=== PATIENT | female | born 2000 | race Two or more races ===

== ENCOUNTER 2018-01-23 01:10 | Emergency (ER) | payer SELFPAY ==
[~2018-01-23] VITALS: Ht 149.9 cm; Wt 58.5 kg
[2018-01-23] MEDS ORDERED: NKM (01:18)
[2018-01-23 01:20] VITALS: BP 112/70
[2018-01-23] MEDS ORDERED: Ketorolac 30mg Inj IV ONE (01:45)
[2018-01-23 01:50] LABS: APPEARANCE,URINE CLEAR; BILIRUBIN, URINE NEGATIVE (NEGATIVE); COLOR,URINE PALE YELLOW; GLUCOSE, URINE (UA) NEGATIVE (NEGATIVE); KETONES,URINE NEGATIVE (NEGATIVE); LEUKOCYTE ESTERASE ,URINE NEGATIVE (NEGATIVE); NITRITE,URINE NEGATIVE (NEGATIVE); PH,URINE 6.5 (4.5-8.0); PROTEIN,URINE NEGATIVE (NEGATIVE); UROBILINOGEN,URINE NORMAL MG/DL (0.0-1.0)
--- NOTE | 2018-01-23 01:53 | Emergency Room Report ---
History of Present Illness General Chief Complaint: Abdominal Pain Source: Patient Present Illness HPI This is a 17-year-old female with no past medical history. She presents with chief complaint abdominal pain. Onset today. Nausea but no vomiting. No diarrhea. Cramping in nature. [place] distended. No urinary complaint. The made it better. Nothing made it worse. Pain is 7 out of 10. Allergies: Coded Allergies: No Known Allergies (Unverified , 01/23/18) Patient History Past Medical History: none, see triage record, old chart reviewed Past Surgical History: none Pertinent Family History: none Social History: Denies: smoking Last Menstrual Period: December Now: No Immunizations: other Reviewed Nursing Documentation: PMH: Agreed; PSxH: Agreed Nursing Documentation-PMH Past Medical History: No Stated History Review of Systems Eye: Denies: eye pain, blurred vision ENT: Denies: ear pain, nose congestion, throat swelling Respiratory: Denies: cough, shortness of breath Cardiovascular: Denies: chest pain, palpitations Gastrointestinal: Reports: abdominal pain, nausea; Denies: diarrhea, vomiting Musculoskeletal: Denies: back pain, joint pain Skin: Denies: rash Neurological: Denies: headache, numbness Endocrine: Denies: increased thirst, increased urine Hematologic/Lymphatic: Denies: easy bruising All Other Systems: negative except mentioned in HPI Physical Exam Vital Signs Date Time Temp Pulse Resp B/P (MAP) Pulse Ox O2 Delivery O2 Flow Rate FiO2 01/23/18 01:12 98.1 89 16 110/68 95 Room Air 98.1 vitals normal Sp02 EP Interpretation: reviewed, normal General Appearance: well appearing, no apparent distress, alert Head: normocephalic, atraumatic Eyes: bilateral eye PERRL, bilateral eye EOMI ENT: hearing grossly normal, normal pharynx Neck: full range of motion, supple, no meningismus Respiratory: chest non-tender, lungs clear, normal breath sounds Cardiovascular #1: regular rate, rhythm, no murmur Gastrointestinal: normal bowel sounds, non tender, no mass, no organomegaly, no bruit, non-distended Musculoskeletal: back normal, gait/station normal, normal range of motion Psychiatric: mood/affect normal Skin: warm/dry Medical Decision Making Diagnostic Impression: Primary Impression: Abdominal pain Qualified Codes: R10.84 - Generalized abdominal pain ER Course Patient with abdominal pain. Most likely an early gastroenteritis. Based on my exam I wouldn't be surprised if she started having diarrhea. Pain is resolved now. No evidence of acute abdomen or obstruction. We'll discharge home. Lab Results Impression labs normal Last Vital Signs Date Time Temp Pulse Resp B/P (MAP) Pulse Ox O2 Delivery O2 Flow Rate FiO2 01/23/18 01:12 98.1 89 16 110/68 95 Room Air 98.1 Status: improved Disposition: HOME, SELF-CARE Condition: Stable Scripts Ibuprofen* (MOTRIN*) 600 Mg Tablet 600 MG ORAL Q8H PRN for For Pain, #30 TAB 0 Refills Prov: LUÍS SONG M.D. 01/23/18 Patient Instructions: Abdominal Pain, Adult Additional Instructions: Follow-up with your 7 days. Return if worse. LUÍS SONG M.D. January 23, 2018 01:53
[2018-01-23 02:08] LABS: BASOPHILS % (AUTO) 0.9 % (0.0-2.0); EOSINOPHILS % (AUTO) 1.3 % (0.0-3.0); HEMATOCRIT 37.3 % (37.0-47.0); HEMOGLOBIN 12.6 G/DL (12.0-16.0); LYMPHOCYTES % (AUTO) 29.9 % (20.0-45.0); MEAN CORPUSCULAR VOLUME 89 FL (80-99); MONOCYTES % (AUTO) 7.2 % (1.0-10.0); NEUTROPHILS % (AUTO) 60.8 % (45.0-75.0); PLATELET COUNT 308 K/UL (150-450); RED BLOOD COUNT 4.22 M/UL (4.20-5.40); RED CELL DISTRIBUTION WIDTH 11.9 % (11.6-14.8); WHITE BLOOD COUNT 9.6 K/UL (4.8-10.8)
[2018-01-23 02:15] LABS: ANION GAP 8 mmol/L (5-15); BLOOD UREA NITROGEN 14 mg/dL (7-18); CARBON DIOXIDE 27 MMOL/L (21-32); CHLORIDE 104 MMOL/L (98-107); CREATININE 0.6 MG/DL (0.55-1.30); POTASSIUM 4.1 MMOL/L (3.5-5.1); SODIUM 138 MMOL/L (136-145)
[2018-01-23 02:19] LABS: ALANINE AMINOTRANSFERASE 23 U/L (12-78); ALKALINE PHOSPHATASE 72 U/L (46-116); ASPARTATE AMINO TRANSFERASE 20 U/L (15-37); BILIRUBIN,TOTAL 0.3 MG/DL (0.2-1.0)
[2018-01-23] MEDS ORDERED: IBUPROFEN600 MG ORAL (02:22)
[2018-01-23 02:32] VITALS: BP 110/64
== END 2018-01-23 02:55 | disposition home or self-care (01) ==
LOC: EMR 02:42
DX: R10.9 Unspecified abdominal pain (principal); R11.0 Nausea
CPT/HCPCS: 36415; 80053; 81003; 81025; 83690; 85025; 96374; 96375; 99283; J1885; J2405

== ENCOUNTER 2018-07-13 11:32 | Emergency (ER) | payer SELFPAY ==
[~2018-07-13] VITALS: Ht 154.9 cm; Wt 56.7 kg
[~2018-07-13 11:32] MED LIST: IBUPROFEN600 MG ORAL; NKM
--- NOTE | 2018-07-13 12:36 | Emergency Room Report ---
History of Present Illness General Chief Complaint: Complications Source: Patient Present Illness HPI 18-year-old female presents to the emergency department complaining of vaginal bleeding 3 days while currently and her 10th week of . She does and states that she had ultrasound performed almost 2 weeks ago which she states was normal. Patient does not know what blood type she has. Patient reports moderate amount of bleeding and she describes it as a the amount of almost a heavy menstrual flow. Patient states initially was dark red blood but now it has become bright red. Patient reports generalized lower abdominal cramping she denies fevers, chills she reports nausea denies vomiting she denies recent abdominal trauma. She reports some fatigue and has had an episode of dizziness. Patient denies history of anemia. Patient denies significant past medical history. She reports that her abdominal cramping is approximately 4 out of 10 in severity. She denies serious, urinary frequency or urgency. Patient states she is not sure whether she is having hematuria or not as there is always blood in her urine last few days. Patient reports some low back pain as well. Allergies: Coded Allergies: No Known Allergies (Unverified , 01/23/18) Patient History Past Medical History: see triage record Past Surgical History: none Pertinent Family History: none Now: Yes - 10 weeks : 1 Para: 0 Reviewed Nursing Documentation: PMH: Agreed; PSxH: Agreed Nursing Documentation-PMH Past Medical History: No Stated History Review of Systems All Other Systems: negative except mentioned in HPI Physical Exam Vital Signs Date Time Temp Pulse Resp B/P (MAP) Pulse Ox O2 Delivery O2 Flow Rate FiO2 07/13/18 11:36 98.1 89 18 112/62 98 Room Air Sp02 EP Interpretation: reviewed, normal General Appearance: no apparent distress, alert, GCS 15, non-toxic Head: normocephalic, atraumatic Eyes: bilateral eye normal inspection, bilateral eye PERRL ENT: hearing grossly normal, normal voice Neck: full range of motion Respiratory: lungs clear, normal breath sounds, speaking full sentences Cardiovascular #1: regular rate, rhythm, normal capillary refill Gastrointestinal: normal bowel sounds, soft, tenderness - generalized mild lower abdominal ttp Rectal: deferred Genitourinary: normal inspection, no CVA tenderness, ext genitalia/vag normal, os closed, other - moderate blood clots, and possible POC in the vaginal vault Musculoskeletal: back normal, gait/station normal, normal range of motion, non- tender Neurologic: alert, oriented x3, responsive, motor strength/tone normal, sensory intact, speech normal, grossly normal Psychiatric: judgement/insight normal Skin: no rash, warm/dry, well hydrated, other - some pallor noted in palms. Medical Decision Making PA Attestation Dr. Elaine is my supervising Physician whom patient management has been discussed with. Diagnostic Impression: Primary Impression: Miscarriage ER Course 18-year-old female presents to the emergency department complaining of vaginal bleeding 3 days while currently and her 10th week of . She does and states that she had ultrasound performed almost 2 weeks ago which she states was normal. Patient does not know what blood type she has. Patient reports moderate amount of bleeding and she describes it as a the amount of almost a heavy menstrual flow. Patient states initially was dark red blood but now it has become bright red. Patient reports generalized lower abdominal cramping she denies fevers, chills she reports nausea denies vomiting she denies recent abdominal trauma. She reports some fatigue and has had an episode of dizziness. Patient denies history of anemia. Patient denies significant past medical history. She reports that her abdominal cramping is approximately 4 out of 10 in severity. She denies serious, urinary frequency or urgency. Patient states she is not sure whether she is having hematuria or not as there is always blood in her urine last few days. Patient reports some low back pain as well. Ddx considered but are not limited to: Fibroid, ectopic , Fibroid, Spontaneous /miscarriage Vital signs: are WNL, pt. is afebrile H&PE are most consistent with: Miscarriage. Pelvic: possible POC, sent to lab for confirmation-- CONFIRMED POC ORDERS: -Serum Hcg Quant: 4,034 - Blood/RH type and screen- see attached labs : A POSITIVE -Pelvic US complete- "NO GESTATIONAL SAC SEEN, Some free fluid noted in the Cul -de-sec" ED INTERVENTIONS: -Tylenol PO for pain. -D/w pt. that this is most publications sales representative of an active miscarriage. that sample will be sent to lab for confirmation. Regardless her Hcg Is low and will need to be repeated by her OBGYN in 48 hours and subsequently until it is zero. Also d/w pt. that the most important thing to watch at this point is for persistent bleeding. d/w pt that she should only have a few clots come which are still in the vaginal vault. d/w pt. if bleeding persists that she needs to return to the ED and contact her OBGYN. DISCHARGE: At this time pt. is stable for d/c to home. Will provide printed patient care instructions, and any necessary prescriptions. Care plan and follow up instructions have been discussed with the patient prior to discharge. Labs Test 07/13/18 12:10 White Blood Count 8.2 K/UL (4.8-10.8) Red Blood Count 4.25 M/UL (4.20-5.40) Hemoglobin 12.1 G/DL (12.0-16.0) Hematocrit 36.3 % (37.0-47.0) Mean Corpuscular Volume 85 FL (80-99) Mean Corpuscular Hemoglobin 28.5 PG (27.0-31.0) Mean Corpuscular Hemoglobin Concent 33.4 G/DL (32.0-36.0) Red Cell Distribution Width 11.5 % (11.6-14.8) Platelet Count 319 K/UL (150-450) Mean Platelet Volume 6.8 FL (6.5-10.1) Neutrophils (%) (Auto) 73.9 % (45.0-75.0) Lymphocytes (%) (Auto) 18.9 % (20.0-45.0) Monocytes (%) (Auto) 6.0 % (1.0-10.0) Eosinophils (%) (Auto) 0.7 % (0.0-3.0) Basophils (%) (Auto) 0.6 % (0.0-2.0) Human Chorionic Gonadotropin, Quant 4034 mIU/mL (1-6) CT/MRI/US Diagnostic Results CT/MRI/US Diagnostic Results : Imaging Test Ordered: Pelvic US OB Complete Impression "NO GESTATIONAL SAC SEEN, Some free fluid noted in the Cul-de-sec" per electrical instrumentation technician. report. Last Vital Signs Date Time Temp Pulse Resp B/P (MAP) Pulse Ox O2 Delivery O2 Flow Rate FiO2 07/13/18 11:36 98.1 89 18 112/62 98 Room Air Disposition: HOME, SELF-CARE Condition: Stable Scripts Ibuprofen* (MOTRIN*) 600 Mg Tablet 600 MG ORAL THREE TIMES A DAY, #20 TAB 0 Refills Prov: Keesha Sebastian 07/13/18 Patient Instructions: Threatened Miscarriage, [id number] Additional Instructions: Take medications as directed. HCG Quant on 07/13: 4034 Follow up with a OBGYN within 48 Hours even if your symptoms have resolved. Return sooner to ED if new symptoms occur, or current symptoms become worse. - Please note that this Emergency Department Report was dictated using [employer] technology software, occasionally this can lead to erroneous entry secondary to interpretation by the dictation equipment. Keesha Sebastian Jul 13, 2018 12:36
[2018-07-13 12:42] LABS: BASOPHILS % (AUTO) 0.6 % (0.0-2.0); EOSINOPHILS % (AUTO) 0.7 % (0.0-3.0); HEMATOCRIT 36.3 % (37.0-47.0); HEMOGLOBIN 12.1 G/DL (12.0-16.0); LYMPHOCYTES % (AUTO) 18.9 % (20.0-45.0); MEAN CORPUSCULAR VOLUME 85 FL (80-99); NEUTROPHILS % (AUTO) 73.9 % (45.0-75.0); PLATELET COUNT 319 K/UL (150-450); RED BLOOD COUNT 4.25 M/UL (4.20-5.40); RED CELL DISTRIBUTION WIDTH 11.5 % (11.6-14.8); WHITE BLOOD COUNT 8.2 K/UL (4.8-10.8)
--- NOTE | 2018-07-13 14:24 | Diagnostic Imaging Report ---
Indication: Pelvic pain, vaginal bleeding x3 days, positive test Technique: Transabdominal and transvaginal images other pelvis. Doppler interrogation of the ovaries Comparison: none Findings: Uterus measures 10.2 cm length by 5.4 cm AP. The and endometrium measures 15 mm thick. No intrauterine gestational sac demonstrated. No myometrial abnormality. Trace free cul-de-sac fluid is demonstrated. The left ovary measures 4.9 cm in length. The right ovary measures 3 cm in length. No adnexal mass demonstrated. Normal Doppler flow is seen within the ovaries. Impression: No intrauterine gestational sac is demonstrated. Differential considerations include spontaneous , ectopic . Findings could also represent very early and therefore not yet visualized , although the beta-hCG level (4034) makes this unlikely Trace free cul-de-sac fluid, presumed physiologic
[2018-07-13] MEDS ORDERED: IBUPROFEN600 MG ORAL (14:51)
[2018-07-13 14:55] VITALS: BP 117/64
== END 2018-07-13 15:09 | disposition home or self-care (01) ==
LOC: EMR 12:34
DX: O20.0 Threatened abortion (principal); O20.9 Hemorrhage in early pregnancy, unspecified; Z3A.10 10 weeks gestation of pregnancy
CPT/HCPCS: 36415; 76801; 76830; 84702; 85025; 86900; 86901; 96360; 99284